=== PATIENT | male | born 1990 ===

== ENCOUNTER 2019-07-16 20:45 | Emergency (ER) | payer SELFPAY ==
[2019-07-16 21:20] LABS: Bilirubin,Urine NEG (Negative); Blood,Urine NEG (Negative); Color,Urine Colorless (Yellow); Protein,Urine <15 mg/dL mg/dL (Negative); Urobilinogen,Urine < 2.0 mg/dL (<2.0)
[2019-07-16 21:23] LABS: Basophils # (Auto) 0.1 K/mm3 (0.0-0.1); Basophils % (Auto) 0.7 % (0.0-1.8); Eosinophils # (Auto) 0.2 K/mm3 (0.0-0.4); Eosinophils % (Auto) 1.8 % (0.0-4.3); Hematocrit 46.9 % (35.5-45.6); Hemoglobin 16.2 gm/dl (11.8-15.2); Lymphocytes # (Auto) 3.3 K/mm3 (1.2-5.4); Lymphocytes % (Auto) 29.5 % (13.4-35.0); Mean Corpuscular HGB Conc 35 % (32-34); Mean Corpuscular Volume 86 fl (84-94); Monocytes # (Auto) 0.6 K/mm3 (0.0-0.8); Monocytes % (Auto) 5.6 % (0.0-7.3); Platelet Count 338 K/mm3 (140-440); Red Blood Count 5.45 M/mm3 (3.65-5.03)
[2019-07-16 21:26] VITALS: BP 143/86
[2019-07-16 21:29] LABS: Amphetamine Screen,Urine PRESUMPTIVE NEGATIVE; Benzodiazepines Screen,Urine PRESUMPTIVE NEGATIVE; Cannabinoid Screen,Urine PRESUMPTIVE NEGATIVE; Cocaine Screen,Urine PRESUMPTIVE NEGATIVE; Methadone Screen,Urine PRESUMPTIVE NEGATIVE; Opiate Screen,Urine PRESUMPTIVE NEGATIVE
[2019-07-16] MEDS ORDERED: ACETAMINOPHEN 325 MG TAB PO ONE (21:39)
[2019-07-16 21:44] LABS: BUN/Creatinine Ratio 18; Blood Urea Nitrogen 11 mg/dL (9-20); Calcium 9.8 mg/dL (8.4-10.2); Hemolysis Index 25
[2019-07-16] MEDS ORDERED: ONDANSETRON 4 MG ODT TAB PO ONE (21:48)
[2019-07-16] MEDS ORDERED: ONDANSETRON 4 MG ODT TAB ONE (21:49)
--- NOTE | 2019-07-16 22:12 | Emergency Department Report ---
HPI - General Chief Complaint: Psych Time Seen by Provider: 07/16/19 21:07 - HPI HPI: 28-year-old male presents to the emergency department with a complaint of a headache going on for the past 6 hours. He denies any vision change, slurred speech, fever, vomiting, numbness or paresthesias, or any neurological deficits. He denies any past medical history. Patient also presents as a possible mental health evaluation. He made some statements through triage that appeared concerning for evaluation of possible psychosis. However, at the time of my exa mination, the patient is alert and oriented, AAO x4 and has made no comments concerning for any psychosis. The patient denies any hallucinations or any homicidal or suicidal ideations. 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 He has not taken anything for his headache prior to presentation today. 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 - Surgical History Past Surgical History?: No - Social History Smoking Status: Current Some Day Smoker - Medications Home Medications: Home Medications Medication Instructions Recorded Confirmed Last Taken Type No Known Home Medications [No 07/16/19 07/16/19 Unknown History Reported Home Medications] ED Review of Systems ROS: Stated complaint: [facility]/MH Other details as noted in HPI Comment: All other systems reviewed and negative Constitutional: denies: chills, fever Eyes: denies: eye pain, vision change ENT: denies: ear pain, throat pain Respiratory: denies: cough, shortness of breath Cardiovascular: denies: chest pain, palpitations Gastrointestinal: denies: abdominal pain, vomiting Genitourinary: denies: dysuria, discharge Musculoskeletal: denies: back pain, arthralgia Skin: denies: rash, lesions Neurological: headache. denies: weakness Psychiatric: denies: auditory hallucinations, visual hallucinations, homicidal thoughts, suicidal thoughts Physical Exam - Physical Exam Vital Signs: Vital Signs 07/16/19 21:23 Temperature 98.6 F Pulse Rate 91 H Respiratory 18 Rate Blood Pressure 143/86 [Right] O2 Sat by Pulse 97 Oximetry Physical Exam: GENERAL: The patient is well-developed well-nourished. HENT: Normocephalic. Atraumatic. Patient has moist mucous membranes. EYES: Extraocular motions are intact. No nystagmus. NECK: Supple. Trachea is midline. CHEST/LUNGS: Clear to auscultation. There is no respiratory distress noted. HEART/CARDIOVASCULAR: Regular. There is no tachycardia. ABDOMEN: Abdomen is soft, nontender. Patient has normal bowel sounds. SKIN: Skin is warm and dry. NEURO: The patient is awake, alert, and oriented. The patient is cooperative. The patient has no focal neurologic deficits. Normal speech. Cranial nerves II through XII grossly intact. MUSCULOSKELETAL: There is no tenderness or deformity. There is no limitation range of motion. There is no evidence of acute injury. ED Course Vital Signs 07/16/19 21:23 Temperature 98.6 F Pulse Rate 91 H Respiratory 18 Rate Blood Pressure 143/86 [Right] O2 Sat by Pulse 97 Oximetry ED Medical Decision Making - Lab Data Result diagrams: 07/16/19 21:13 07/16/19 21:13 - Radiology Data Radiology results: report reviewed CT HEAD WITHOUT CONTRAST INDICATION / CLINICAL INFORMATION: Patient complains of a headache x 8 days, No Trauma.. TECHNIQUE: All CT scans at this location are performed using CT dose reduction for ALARA by means of automated exposure control. COMPARISON: None available. FINDINGS: HEMORRHAGE: None. EXTRA-AXIAL SPACES: Normal in size and morphology for the patient's age. VENTRICULAR SYSTEM: Normal in size and morphology for the patient's age. CEREBRAL PARENCHYMA: No significant abnormality. No acute territorial infarct. MIDLINE SHIFT OR HERNIATION: None. CEREBELLUM / BRAINSTEM: No significant abnormality. ORBITS: Normal as visualized. SOFT TISSUES of HEAD: No significant abnormality. CALVARIUM: No significant abnormality. PARANASAL SINUSES / MASTOID AIR CELLS: Normal as visualized. ADDITIONAL FINDINGS: None. IMPRESSION: 1. No acute intracranial abnormality. - Medical Decision Making This patient presents to the emergency department with the complaint of a intermittent headache. CT scan of the head did not show any bleed, shift, mass, ischemia, or any other acute process. He does not have any focal, motor or sensory deficits and his cranial nerves are intact. Patient was given some Tylenol and upon reevaluation he is feeling greatly improved. The patient also presented for a possible mental health evaluation. He had made some statements to triage concerning for possible psychosis. However at the time of my examination the patient is awake and oriented, calm and appropriate, AAO x3. He denies any hallucinations, suicidal or homicidal ideations, and has made no comments to me concerning for psychosis at this time. Vital signs stable throughout his ED course. The patient will be discharged home to follow- up with primary care. He will return to the emergency department with any worsening of his symptoms or any acute distress. Critical Care Time: No Critical care attestation.: If time is entered above; I have spent that time in minutes in the direct care of this critically ill patient, excluding procedure time. ED Disposition Clinical Impression: Headache Qualifiers: Headache type: unspecified Headache chronicity pattern: episodic headache Intractability: not intractable Qualified Code(s): R51 - Headache Disposition: DC-01 TO HOME OR SELFCARE Is pt being admited?: No Condition: Stable Instructions: Acute Headache (ED) Additional Instructions: Please follow-up with a primary care physician in the next few days. Return to the emergency department with any worsening of your symptoms or any acute distress. Referrals: [facility] [Outside] - 3-5 Days [facility] [Provider Group] - 3-5 Days Time of Disposition: 23:14
--- NOTE | 2019-07-16 23:03 | Cat Scan Report ---
CT HEAD WITHOUT CONTRAST INDICATION / CLINICAL INFORMATION: Patient complains of a headache x 8 days, No Trauma.. TECHNIQUE: All CT scans at this location are performed using CT dose reduction for ALARA by means of automated e xposure control. COMPARISON: None available. FINDINGS: HEMORRHAGE: None. EXTRA-AXIAL SPACES: Normal in size and morphology for the patient's age. VENTRICULAR SYSTEM: Normal in size and morphology for the patient's age. CEREBRAL PARENCHYMA: No significant abnormality. No acute territorial infarct. MIDLINE SHIFT OR HERNIATION: None. CEREBELLUM / BRAINSTEM: No significant abnormality. ORBITS: Normal as visualized. SOFT TISSUES of HEAD: No significant abnormality. CALVARIUM: No significant abnormality. PARANASAL SINUSES / MASTOID AIR CELLS: Normal as visualized. ADDITIONAL FINDINGS: None. IMPRESSION: 1. No acute intracranial abnormality. Signer Name: Marquita Hdez MD Signed: 07/16/2019 10:59 PM Workstation Name: [id number]
[2019-07-16] MEDS ORDERED: IBUPROFEN 600 MG TAB PO ONE (23:14)
== END 2019-07-16 23:55 | disposition home or self-care (01) ==
LOC: ED 20:45
DX: R51 Headache (principal); F41.9 Anxiety disorder, unspecified; F17.200 Nicotine dependence, unspecified, uncomplicated; Z86.11 Personal history of tuberculosis
CPT/HCPCS: 36415; 70450; 80048; 80307; 80320; 81001; 85025; G0480; Q0162